=== PATIENT | female | born 1955 | race Caucasian/White ===

== ENCOUNTER 2022-03-18 08:12 | Emergency (ER) | payer BC, SELFPAY ==
[2022-03-18 08:25] VITALS: BP 140/91; PULSE 73; RESP 18; TEMP 36.4; O2SAT 96; BMI 42.5
[2022-03-18 09:07] LABS: Appearance Urine Clear (Clear); Basophils Absolute Auto 0.04 K/uL (0.00-0.30); Basophils Percent Auto 0.6 % (0.0-3.0); Bilirubin Urine Negative (Negative); Blood Urine 2+ (Negative); Color Urine Yellow (Yellow); Eosinophils Absolute Auto 0.36 K/uL (0.00-0.50); Eosinophils Percent Auto 5.6 % (0.0-7.0); Glucose Urine Negative (Negative); Hematocrit 42.2 % (33.0-51.0); Hemoglobin* 14.3 gm/dL (12.0-16.0); Immature Granulocytes Abs Auto 0.02 K/uL (0.00-0.30); Ketones Urine Negative (Negative); Leukocyte Esterase Urine Negative (Negative); Lymphocytes Absolute Auto 2.34 K/uL (0.90-2.90); Lymphocytes Percent Auto 36.1 % (20-44); Mean Corpuscular HGB Conc 34 gm/dL (32-36); Mean Corpuscular Hemoglobin 30 pg (26-34); Mean Corpuscular Volume 87 fL (80-100); Monocytes Percent Auto 8.5 % (0.0-11.0); Neutrophils Absolute Auto 3.17 K/uL (1.7-7.0); Neutrophils Percent Auto 48.9 % (42.0-72.0); Nitrite Urine Negative (Negative); Platelet Count* 257 K/uL (140-440); Protein Urine Negative (Negative); RDW Coefficient of Variation % 13.2 % (11.5-15.5); Red Blood Count 4.83 m/uL (4.00-5.20); Specific Gravity Urine 1.015 (1.000-1.030); Urobilinogen Urine 0.2 (0.2-1.0); White Blood Count* 6.48 K/uL (4.50-11.00)
[2022-03-18] MEDS: 0.9 % SODIUM CHLORIDE 1000 ml 1,000 ML IV (09:15)
[2022-03-18 09:17] VITALS: BP 137/86; PULSE 68; RESP 18; O2SAT 97
[2022-03-18 09:20] LABS: Bacteria Urine Few; Calcium Oxalate Crystals Urine Few; Squamous Epithelial Cell Urine Few (None-Few); WBC Urine 0-2 (0-5)
[2022-03-18 09:21] LABS: Chloride* 105 mmol/L (96-114); Slide Review Reflex No
[2022-03-18 09:22] LABS: Potassium* 3.5 mmol/L (3.6-5.1); Sodium* 142 mmol/L (135-149)
[2022-03-18 09:24] LABS: Creatinine* 0.9 mg/dL (0.5-1.5); Est. Creatinine Clearance* 42.89; Estimated Glomerular Filt Rate 71 ml/min
[2022-03-18 09:25] LABS: Bilirubin Direct* 0.2 mg/dL (0.0-0.5); Bilirubin Total* 0.4 mg/dL (0.1-1.5); Blood Urea Nitrogen* 11 mg/dL (7-30); Calcium* 8.8 mg/dL (8.4-10.6); Carbon Dioxide* 31 mmol/L (20-32); Glucose* 120 mg/dL (60-115)
[2022-03-18 09:26] LABS: Alanine Aminotransferase* 21 U/L (4-35); Alkaline Phosphatase* 108 U/L (40-150); Aspartate Amino Transferase* 27 U/L (12-35)
--- NOTE | 2022-03-18 09:47 | ED_ITS ---
HPI - General Adult General Chief complaint: Dizziness/Vertigo Stated complaint: Lightheaded and dizzy Time Seen by Provider: 03/18/22 08:30 Source: patient Mode of arrival: ambulatory Limitations: no limitations History of Present Illness HPI narrative: 66-year-old female coming in today complaining of feeling ?lightheaded?. She denies the room spinning around her. She denies feeling nauseated. She denies any recent nausea, fevers or chills. She states that she feels that the most when she has to stand up from a sitting position. Sitting down makes it a little better. She has not fallen. She denies any vision changes, blurry vision or double vision, she denies any ringing in her ears. She states that for the last 3 days she has had a migraine headache which is not unusual for her. There was nothing out of the ordinary for this particular headache. She states that it is now resolved. Her past medical history is significant for gout, migraine headaches, chronic hypokalemia, anxiety, depression, asthma, systolic murmur, cataracts. Related Data Home Medications Medication Instructions Recorded Confirmed amlodipine 2.5 mg tablet mg 03/18/22 buspirone 10 mg tablet mg 03/18/22 sertraline 100 mg tablet mg 03/18/22 simvastatin 40 mg tablet mg 03/18/22 Previous Rx's Medication Instructions Recorded cephalexin 500 mg capsule 500 mg PO TID 5 days #15 caps 03/18/22 Allergies Allergy/AdvReac Type Severity Reaction Status Date / Time erythromycin base Allergy Verified 03/18/22 08:25 naproxen Allergy Verified 03/18/22 08:25 Penicillins Allergy Verified 03/18/22 08:25 Sulfa (Sulfonamide Allergy Verified 03/18/22 08:25 Antibiotics) Review of Systems Status of ROS: Reports: 10 or more systems reviewed and unremarkable except as noted in History and below [facility] Medical History COPD (chronic obstructive pulmonary disease) Hyperlipidemia Hypertension Social History Smoking Status: Former smoker Do you use any of these nicotine containing products: None Second hand tobacco smoke exposure: No How often do you have a drink containing alcohol: never AUDIT-C Alcohol total score: 0 Non-prescribed substance use: denies use Exam Narrative: Exam Narrative: Overweight, well-developed patient in no acute distress. Alert and oriented. Answers questions appropriately. Mood and affect are appropriate. Thoughts are goal oriented and rational. No tangential or magical thinking noted. Patient speaks in full sentences without needing to catch her breath. HEENT: Normocephalic atraumatic. Pupils are equally round reactive to light. Extraocular muscles are intact. Conjunctivae are moist without any icterus noted. Moist mucous membranes. Posterior pharynx is normal. Neck is soft without any lymphadenopathy or thyromegaly. No masses are appreciated. Cardiovascular: Heart is regular rate and rhythm S1 and S2 are present with a very soft 1/6 systolic murmur. Lungs: Clear to auscultation bilaterally no wheezes rhonchi or rales are appreciated. Patient takes deep breaths without any discomfort. Abdomen: Soft and nontender nondistended with normal bowel sounds. Extremities: Bilateral lower extremities are without edema. Normal DP and PT pulses. Skin: Well perfused without any obvious rashes. Strength is 5/5 of the upper and lower extremities. Reflexes are 2+ and symmetric at the knees. Cranial nerves 3-12 are normal. There is no nystagmus either horizontally or vertically. Hallpike is negative. I cannot elicit her dizziness when she sits up. Const: Vital Signs, click to edit/add: Vital Signs - 24 hr 03/18/22 08:25 03/18/22 09:17 03/18/22 10:25 Temperature 97.6 F Pulse Rate [Right Pulse Oximeter] 73 68 72 Respiratory Rate 18 18 Blood Pressure [Ri ght Forearm] 140/91 H 137/86 129/83 Pulse Oximetry 96 97 Oxygen Delivery Me thod Room Air Room Air 03/18/22 10:26 03/18/22 10:26 Temperature Pulse Rate [Right Pulse Oximeter] 74 76 Respiratory Rate Blood Pressure [Ri ght Forearm] 133/90 H 144/94 H Pulse Oximetry Oxygen Delivery Me thod Course Course Hospital Course: Workup today including labs, EKG was normal. She does have hematuria which she states has never been something she has been told in the past. She did receive a L of normal saline while she was here. This did seem to help her symptoms a little bit. She was able to stand up without feeling dizzy, however, she stated that the dizziness did come back a little bit after she was standing for couple of minutes. She had no evidence of orthostatic hypotension, no evidence of arrhythmia noted while she was here. Vital Signs Vital signs: Initial Vital Signs Temperature 97.6 F 03/18/22 08:25 Temperature Source Temporal Artery Scan 03/18/22 08:25 Pulse Rate 73 03/18/22 08:25 Respiratory Rate 18 03/18/22 08:25 Blood Pressure 140/91 H 03/18/22 08:25 Blood Pressure Mean 107 03/18/22 08:25 Blood Pressure Position Supine 03/18/22 08:25 Pulse Oximetry 96 03/18/22 08:25 Oxygen Delivery Method 03/18/22 08:25 Vital Signs Temperature 97.6 F 03/18/22 08:25 Pulse Rate 73 03/18/22 08:25 Respiratory Rate 18 03/18/22 08:25 Blood Pressure 140/91 H 03/18/22 08:25 Pulse Oximetry 96 03/18/22 08:25 Oxygen Delivery Method 03/18/22 08:25 Temperature 97.6 F 03/18/22 08:25 Pulse Rate 76 03/18/22 10:26 Respiratory Rate 18 03/18/22 09:17 Blood Pressure 144/94 H 03/18/22 10:26 Pulse Oximetry 97 03/18/22 09:17 Oxygen Delivery Method 03/18/22 09:17 Medical Decision Making MDM Narrative Medical decision making narrative: 66-year-old female feeling lightheaded, unclear etiology. Given her normal exam I do not feel that this is a life-threatening situation. We discussed hydration and proper rest. We discussed following with primary care as needed a returning to the ER for symptoms worsen. Hematuria-question UTI. At this point will treat her with Keflex t.i.d. for 5 days. I recommend she follow up with her primary care provider in about 10 days to have a repeat UA done. Lab Data Lab results reviewed: Yes I reviewed the patient's lab results Labs: Lab Results 03/18/22 03/18/22 03/18/22 Range/Units 09:00 09:00 09:00 WBC 6.48 (4.50-11.00) K/uL RBC 4.83 (4.00-5.20) m/uL Hgb 14.3 (12.0-16.0) gm/dL Hct 42.2 (33.0-51.0) % MCV 87 (80-100) fL MCH 30 (26-34) pg MCHC 34 (32-36) gm/dL RDW Coeff of Alex 13.2 (11.5-15.5) % Plt Count 257 (140-440) K/uL Neut % (Auto) 48.9 (42.0-72.0) % Lymph % (Auto) 36.1 (20-44) % [place] % (Auto) 8.5 (0.0-11.0) % Eos % (Auto) 5.6 (0.0-7.0) % Baso % (Auto) 0.6 (0.0-3.0) % Neut # (Auto) 3.17 (1.7-7.0) K/uL Lymph # (Auto) 2.34 (0.90-2.90) K/uL [place] # (Auto) 0.60 (0.00-0.90) K/UL Eos # (Auto) 0.36 (0.00-0.50) K/uL Baso # (Auto) 0.04 (0.00-0.30) K/uL Abs Immat Gran (auto) 0.02 (0.00-0.30) K/uL Sodium 142 (135-149) mmol/L Potassium 3.5 L (3.6-5.1) mmol/L Chloride 105 (96-114) mmol/L Carbon Dioxide 31 (20-32) mmol/L BUN 11 (7-30) mg/dL Creatinine 0.9 (0.5-1.5) mg/dL Estimated Creat Clear 42.89 Estimated GFR 71 ml/min Glucose 120 H (60-115) mg/dL Calcium 8.8 (8.4-10.6) mg/dL Total Bilirubin (0.1-1.5) mg/dL Direct Bilirubin (0.0-0.5) mg/dL AST (12-35) U/L ALT (4-35) U/L Alkaline Phosphatase (40-150) U/L Total Protein (6.0-8.3) g/dL Albumin (3.3-5.0) g/dL Urine Color Yellow (Yellow) Urine Appearance Clear (Clear) Urine pH 6.0 (5.0-8.5) Ur Specific [place] 1.015 (1.000-1.030) Urine Protein Negative (Negative) Urine Glucose (UA) Negative (Negative) Urine Ketones Negative (Negative) Urine Blood 2+ A (Negative) Urine Nitrite Negative (Negative) Urine Bilirubin Negative (Negative) Urine Urobilinogen 0.2 (0.2-1.0) Ur Leukocyte Esterase Negative (Negative) Urine RBC 5-10 A (0-2) Urine WBC 0-2 (0-5) Ur Squamous Epith Cells Few (None-Few) Calcium Oxalate Crystal Few A (None) Urine Bacteria Few A (None) 03/18/22 Range/Units 09:00 WBC (4.50-11.00) K/uL RBC (4.00-5.20) m/uL Hgb (12.0-16.0) gm/dL Hct (33.0-51.0) % MCV (80-100) fL MCH (26-34) pg MCHC (32-36) gm/dL RDW Coeff of Alex (11.5-15.5) % Plt Count (140-440) K/uL Neut % (Auto) (42.0-72.0) % Lymph % (Auto) (20-44) % [place] % (Auto) (0.0-11.0) % Eos % (Auto) (0.0-7.0) % Baso % (Auto) (0.0-3.0) % Neut # (Auto) (1.7-7.0) K/uL Lymph # (Auto) (0.90-2.90) K/uL [place] # (Auto) (0.00-0.90) K/UL Eos # (Auto) (0.00-0.50) K/uL Baso # (Auto) (0.00-0.30) K/uL Abs Immat Gran (auto) (0.00-0.30) K/uL Sodium (135-149) mmol/L Potassium (3.6-5.1) mmol/L Chloride (96-114) mmol/L Carbon Dioxide (20-32) mmol/L BUN (7-30) mg/dL Creatinine (0.5-1.5) mg/dL Estimated Creat Clear Estimated GFR ml/min Glucose (60-115) mg/dL Calcium (8.4-10.6) mg/dL Total Bilirubin 0.4 (0.1-1.5) mg/dL Direct Bilirubin 0.2 (0.0-0.5) mg/dL AST 27 (12-35) U/L ALT 21 (4-35) U/L Alkaline Phosphatase 108 (40-150) U/L Total Protein 7.0 (6.0-8.3) g/dL Albumin 4.0 (3.3-5.0) g/dL Urine Color (Yellow) Urine Appearance (Clear) Urine pH (5.0-8.5) Ur Specific [place] (1.000-1.030) Urine Protein (Negative) Urine Glucose (UA) (Negative) Urine Ketones (Negative) Urine Blood (Negative) Urine Nitrite (Negative) Urine Bilirubin (Negative) Urine Urobilinogen (0.2-1.0) Ur Leukocyte Esterase (Negative) Urine RBC (0-2) Urine WBC (0-5) Ur Squamous Epith Cells (None-Few) Calcium Oxalate Crystal (None) Urine Bacteria (None) ECG Data Attestation: I personally reviewed and interpreted this ECG as follows: (Normal sinus rhythm, pulse 64) Discharge Plan Discharge Clinical Impression: Hematuria, Dizziness Patient Disposition: Home, Self-Care Condition: Stable Additional Instructions: Make sure to stay well hydrated, eat nutritious meals and get plenty of rest. Move slowly until symptoms clear up completely. Return to the ER if your symptoms are getting worse. We did find blood in your urine today-this could mean a bladder infection. You will be treated with antibiotics for 5 days. I recommend you follow-up with your primary care provider in about 10-14 days to have a repeat urine test done to make sure that this has cleared up. Prescriptions: New cephalexin 500 mg capsule 500 mg PO TID 5 Days Qty: 15 0RF No Action sertraline 100 mg tablet Label Comments: TAKE 1 TABLET (100 MG) BY MOUTH EVERY MORNING amlodipine 2.5 mg tablet Label Comments: TAKE 1 TABLET (2.5 MG) BY MOUTH ONCE DAILY. simvastatin 40 mg tablet buspirone 10 mg tablet Label Comments: TAKE 2 TABLETS BY MOUTH 2 TIMES DAILY. Follow Up/Referrals: Tari Duong MD [Primary Care Provider] - Stand Alone Forms: [employer] Info Instructions
--- NOTE | 2022-03-18 09:52 | ED.NURSE ---
Work note excusing from work for 03/18/22 given to pt.
[2022-03-18 10:25] VITALS: BP 129/83; PULSE 72
[2022-03-18 10:26] VITALS: BP 133/90; BP 144/94; PULSE 74; PULSE 76
== END 2022-03-18 10:44 | disposition home or self-care (01) ==
PROVIDERS: Emergency Provider Family Medicine; PCP Family Medicine
DX: R31.9 Hematuria, unspecified (principal)
CPT/HCPCS: 36415; 80048; 80076; 81001; 85025; 87086; 93005; 96360; 99284; J7030